=== PATIENT | female | born 1940 | race Caucasian/White ===

== ENCOUNTER → 2020-10-18 | Outpatient (CLI) | payer MEDICARE ==
[2020-10-18 18:32] LABS: Appearance, Urine Hazy (Clear); Bilirubin, Urine Neg (Neg); Blood, Urine 2+ (Neg); Color, Urine Yellow (P-Yellow); Glucose Qualitative, Urine Neg (Neg); Ketones, Urine Neg (Neg); Leukocyte Esterase, Urine 3+ (Neg); Nitrite, Urine Pos (Neg); Protein, Urine 1+ (Neg); Urobilinogen, Urine NORM (Normal); pH, Urine 6.5 (5.0-8.0)
[2020-10-18 19:04] LABS: Squamous Epithelial Cells Mod /hpf (Few)
[2020-10-18 19:05] LABS: Bacteria Many /hpf; Mucus Light (0-Heavy); Transitional Epithelial Cells Few /hpf (0-Rare); White Blood Cells, Urine 25-50 /hpf (0-5)
== END | disposition home or self-care (01) ==
LOC: PLD 17:03 → LAB SHORT 17:03
PROVIDERS: Internal Medicine
DX: N39.0 Urinary tract infection, site not specified (principal)
CPT/HCPCS: 81001; 87077; 87086; 87186

== ENCOUNTER → 2021-02-06 | Outpatient (CLI) | payer MEDICARE ==
[2021-02-06 12:06] LABS: Protein, Urine Quantitative 9.5 mg/dL (0.0-11.9)
== END | disposition home or self-care (01) ==
LOC: LAB SHORT 03:00 → LAB 03:00
PROVIDERS: Internal Medicine
DX: N04.9 Nephrotic syndrome with unspecified morphologic changes (principal)
CPT/HCPCS: 81050; 84156

== ENCOUNTER 2021-12-05 01:20 | Inpatient (IN) | payer MEDICARE ==
[~2021-12-05] VITALS: Ht 157.5 cm; Wt 70.9 kg
[2021-12-05 01:55] LABS: BASOPHILS ABSOLUTE AUTO 0.04 K/mm3 (0.00-0.23); BASOPHILS PERCENT AUTO 0 % (0-2); EOSINOPHILS ABSOLUTE AUTO 0.07 K/mm3 (0.00-0.68); EOSINOPHILS PERCENT AUTO 0 % (0-6); Hemoglobin 7.4 g/dL (11.5-16.0); IMMATURE GRAN ABSOLUTE AUTO 0.85 K/mm3 (0.00-0.10); IMMATURE GRAN PERCENT AUTO 4 % (0-1); LYMPHOCYTES ABSOLUTE AUTO 3.81 K/mm3 (0.84-5.20); LYMPHOCYTES PERCENT AUTO 16 % (21-46); MONOCYTES ABSOLUTE AUTO 0.98 K/mm3 (0.16-1.47); MONOCYTES PERCENT AUTO 4 % (4-13); Mean Corpuscular HGB 25.4 pg (26.0-34.0); Mean Corpuscular HGB Conc 29.6 g/dL (31.5-36.5); Mean Corpuscular Volume 86 fL (80-100); Mean Platelet Volume 9.6 fL (9.1-12.4); NEUTROPHILS ABSOLUTE AUTO 17.89 K/mm3 (1.96-9.15); NEUTROPHILS PERCENT AUTO 76 % (41-73); Platelet Count 886 K/mm3 (150-400); RDW Coefficient Variation 16.4 % (11.7-14.2); RDW Standard Deviation 51.8 fL (35.1-46.3); Red Blood Cell Count 2.91 M/mm3 (3.80-5.20); White Blood Cell Count 23.64 K/mm3 (4.00-11.30)
[2021-12-05 02:17] LABS: Base Excess Venous -20.8 mmol/L; Bicarbonate Venous 9.6 mmol/L (24.0-30.0); PCO2 Venous 25.4 mmHg (38-42); PO2 Venous 136 mmHg (38-42)
[2021-12-05 02:22] LABS: pH Blood Venous 7.13 (7.34-7.37)
[2021-12-05 02:38] LABS: Source, Urine Foley catheter
[2021-12-05 02:55] LABS: Thyroid Stimulating Hormone 4.57 uIU/mL (0.360-4.800)
[2021-12-05 03:03] LABS: Appearance, Urine Cloudy (Clear); Bilirubin, Urine Neg (Neg); Blood, Urine 2+ (Neg); Color, Urine Yellow (P-Yellow); Glucose Qualitative, Urine Neg (Neg); Ketones, Urine Neg (Neg); Leukocyte Esterase, Urine 3+ (Neg); Nitrite, Urine Pos (Neg); Protein, Urine 2+ (Neg); Specific Gravity, Urine 1.025 (1.003-1.022); Urobilinogen, Urine NORM (Normal)
[2021-12-05 03:18] LABS: International Normalized Ratio 1.4; Prothrombin Time Results 14.4 Sec (9.7-11.5)
[2021-12-05 03:24] LABS: Bacteria Many /hpf; Red Blood Cells, Urine 0-2 /hpf (0-2); Squamous Epithelial Cells Mod /hpf (Few); White Blood Cells, Urine TNTC /hpf (0-5)
[2021-12-05 03:26] LABS: U Amphetamine Screen Not Detected; U Barbituate Screen Not Detected; U Benzodiazapine Screen Not Detected; U Buprenorphine Screen Not Detected; U Cannabinoids Screen Not Detected; U Cocaine Screen Not Detected; U Methadone Screen DETECTED; U Methamphetamine Screen Not Detected; U Opiates Screen Not Detected; U Oxycodone Screen Not Detected; U Phencyclidine Screen Not Detected; U Propoxyphene Screen Not Detected
[2021-12-05 03:27] LABS: PCO2 Arterial 66.6 mmHg (35-45); PO2 Arterial 129 mmHg (80-100)
[2021-12-05 03:28] LABS: pH Blood Arterial 6.89 (7.35-7.45)
[2021-12-05 04:38] LABS: Albumin, Blood 1.4 g/dL (3.4-5.0); Albumin/Globulin Ratio 0.4 (0.8-1.8); Bilirubin, Total 0.5 mg/dL (0.1-1.0); Bun/Creatinine Ratio 27.2 (12.0-20.0); Calcium, Blood 8.9 mg/dL (8.5-10.1); Creatinine, Blood 1.03 mg/dL (0.40-1.00); Globulin, Blood 3.8 g/dL (2.2-4.0); Potassium, Blood 6.2 mmol/L (3.5-5.5); Total Protein, Blood 5.2 g/dL (6.4-8.2)
[2021-12-05 06:25] LABS: Influenza A, PCR NEGATIVE (NEGATIVE); Influenza B, PCR NEGATIVE (NEGATIVE); Resp Syncytial Virus, PCR NEGATIVE (NEGATIVE); SARS-Cov-2 (COVID-19) PCR, MMC NEGATIVE (NEGATIVE)
--- NOTE | 2021-12-05 07:19 | NUR ---
PT ARRIVED TO UNIT AT 0640. AT BEDSIDE. NO PRESSORS RUNNING AT THIS TIME. BP SOFT, MAP ABOVE 65. PT PLACED ON UNIT VENT BY RT. CARE RELINQUISHED TO ANDRY VICENTE.
[2021-12-05 07:39] LABS: PCO2 Arterial 43.4 mmHg (35-45); PO2 Arterial 119 mmHg (80-100)
[2021-12-05 08:06] LABS: BASOPHILS ABSOLUTE AUTO 0.15 K/mm3 (0.00-0.23); BASOPHILS PERCENT AUTO 0 % (0-2); Hemoglobin 8.6 g/dL (11.5-16.0); LYMPHOCYTES ABSOLUTE AUTO 2.58 K/mm3 (0.84-5.20); LYMPHOCYTES PERCENT AUTO 7 % (21-46); MONOCYTES ABSOLUTE AUTO 1.29 K/mm3 (0.16-1.47); MONOCYTES PERCENT AUTO 3 % (4-13); Mean Corpuscular HGB Conc 31.9 g/dL (31.5-36.5); Mean Corpuscular Volume 85 fL (80-100); Mean Platelet Volume 9.5 fL (9.1-12.4); Platelet Count 493 K/mm3 (150-400); RDW Coefficient Variation 14.8 % (11.7-14.2); RDW Standard Deviation 45.8 fL (35.1-46.3); Red Blood Cell Count 3.18 M/mm3 (3.80-5.20); White Blood Cell Count 39.46 K/mm3 (4.00-11.30)
[2021-12-05 08:11] LABS: EOSINOPHILS ABSOLUTE AUTO 0.01 K/mm3 (0.00-0.68); EOSINOPHILS PERCENT AUTO 0 % (0-6); IMMATURE GRAN ABSOLUTE AUTO 1.76 K/mm3 (0.00-0.10); IMMATURE GRAN PERCENT AUTO 5 % (0-1); NEUTROPHILS ABSOLUTE AUTO 33.67 K/mm3 (1.96-9.15); NEUTROPHILS PERCENT AUTO 85 % (41-73)
[2021-12-05] MEDS ORDERED: METH5 PO (08:15)
[2021-12-05 11:09] LABS: Bun/Creatinine Ratio 25.4 (12.0-20.0); Calcium, Blood 8.5 mg/dL (8.5-10.1); Creatinine, Blood 1.26 mg/dL (0.40-1.00)
[2021-12-05 12:29] LABS: Hematocrit 27.8 % (33.0-51.0); Hemoglobin 9.3 g/dL (11.5-16.0)
--- NOTE | 2021-12-05 12:31 | NUR ---
REASSESSMENT PT REMAINS INTUBATED AND SEDATION WAS STARTED THIS MORNING PT STARTED BREATHING AT A RATE IN THE UPPER 30S AND APPEARING MORE AGITATED. BEFORE SEDATION STARTED PT WOULD OPEN HER EYES TO VOICE AND SHAKE OR NOD HER HEAD TO QUESTIONS. LUNGS WERE COARSE BEFORE SUCTIONING AND CLEAR AFTER GETTING A LARGE AMT OF THICK WHITE/CREAM SECRETIONS OUT OF ETT. PT REMAINS SINUS TACH IN THE 1 TEENS. RECEIVING LEVOPHED AND VASOPRESSIN FOR BP SUPPORT. ART LINE PLACED THIS MORNING BY DR. BOLANOS. LINE IS QUITE POSITIONAL AND DAMPENS VERY EASILY. OG WITH DARK GREEN, BILIOUS APPEARING OUTPUT. PT HAS BEEN HAVING LOOSE STOOLS THAT HAVE BECOME MORE LIQUID. THE AMOUNT INCREASED THROUGHOUT THE MORNING SO RECTAL TUBE IN PLACE NOW TO PROTECT PT'S SKIN IT WAS ALREADY PINK AND FRAGILE APPEARING WHEN PT ARRIVED. WAN WITH DARK YELLOW, CLOUDY URINE. PT'S SON AND DAUGHTERS HAVE BEEN AT THE BEDSIDE MOST OF THE MORNING. THEY WERE UPDATED BY DR. BOLANOS AND THEY HAVE BEEN UPDATED THROUGHOUT THE SHIFT BY NURSING STAFF.
[2021-12-05 14:33] LABS: Vancomycin, Random 16.1 ug/mL
--- NOTE | 2021-12-05 15:01 | NUR ---
DR. BOLAONS CALLED TO UPDATE ON ONLY 8ML OF URINE OUTPUT OVER THE LAST 2 HOURS, MAP AT 60MMHG WITH LEVOPHED AT 20MCG/MIN AND VASOPRESSIN INFUSING, WELL FEVER. RECEIVED ORDER FOR 1L LR. CONTINUE TO MONITOR.
[2021-12-05 15:59] LABS: Hematocrit 22.7 % (33.0-51.0); Hemoglobin 7.8 g/dL (11.5-16.0)
--- NOTE | 2021-12-05 16:55 | NUR ---
SHIFT SUMMARY PT REMAINED INTUBATED AND SEDATED THIS SHIFT. SHE IS STILL REQUIRING PRESSORS, BUT THEY HAVE BEEN TITRATED DOWN SINCE BOLUS WAS GIVEN THIS AFTERNOON. LUNGS ARE COARSE AT TIMES, BUT CLEAR ONCE SUCTIONED. MODERATE AMT OF SPUTUM THIS AFTERNOON, SAMPLE SENT PER DR. BOLANOS. SR WITH RATE IN THE 90S. RECTAL TUBE WITH SMALL AMT OF OUTPUT. SM AMT OF LEAKING AROUND TUBE WITH EACH TURN WELL. WAN WITH SCANT URINE OUTPUT THIS AFTERNOON, MD AWARE. SKIN CONDITION UNCHANGED. FAMILY HAS BEEN AT THE BEDSIDE MOST OF THE SHIFT AND WERE UPDATED THROUGHOUT.
[2021-12-05 20:07] LABS: Bun/Creatinine Ratio 21.8 (12.0-20.0); Calcium, Blood 7.9 mg/dL (8.5-10.1); Creatinine, Blood 1.65 mg/dL (0.40-1.00); Magnesium, Blood 1.6 mg/dL (1.6-2.4); Phosphorus, Blood 5.2 mg/dL (2.5-4.9); Potassium, Blood 4.8 mmol/L (3.5-5.5)
--- NOTE | 2021-12-05 20:48 | NUR ---
ASSUMED CARE AT 1900 PATIENT IS INTUBATED AND SEDATED ON PROPOFOL. LOCALIZES TO PAIN, MOVEMENT IN ALL EXTREMETIES, NO EYE OPENING, COUGH AND GAG REFLEX PRESENT. 02 SATS 100% ON VENT AC VC+ 18/370/5/35% RR 21. THICK CM SPUTUM SUCTIONED FROM ETT. OG TO LIS WITH YELLOW BILE OUTPUT MODERATE AMOUNT. HR SR @80s, BP STABLE ON LEVO AND VASO, ART LINE IN PLACE. WAN DRAINING SMALL AMOUNT OF ROSANNA URINE. RECTAL TUBE IN PLACE WITH SMALL AMOUNT OF LIGHT BROWN LIQUID OUTPUT. PATIENT REPOSITIONED AND ORAL CARE DONE. SEE SHIFT ASSESSMENT FOR MORE DETAIL.
[2021-12-06 03:32] LABS: PCO2 Arterial 32.8 mmHg (35-45); PO2 Arterial 86.7 mmHg (80-100); pH Blood Arterial 7.47 (7.35-7.45)
[2021-12-06 03:47] LABS: Hematocrit 20.9 % (33.0-51.0); Hemoglobin 7.2 g/dL (11.5-16.0); Mean Corpuscular HGB 27.5 pg (26.0-34.0); Mean Corpuscular HGB Conc 34.4 g/dL (31.5-36.5); Mean Platelet Volume 10.2 fL (9.1-12.4); Platelet Count 471 K/mm3 (150-400); RDW Coefficient Variation 14.8 % (11.7-14.2); RDW Standard Deviation 43.2 fL (35.1-46.3); Red Blood Cell Count 2.62 M/mm3 (3.80-5.20); White Blood Cell Count 31.46 K/mm3 (4.00-11.30)
[2021-12-06 03:53] LABS: Mean Corpuscular Volume 80 fL (80-100)
[2021-12-06 04:14] LABS: Alanine Aminotransfer (ALT/SGP 173 U/L (12-78); Albumin, Blood 1.3 g/dL (3.4-5.0); Albumin/Globulin Ratio 0.4 (0.8-1.8); Alk Phos 149 U/L (50-136); Anion Gap 8 mmol/L (6-16); Aspartate Aminotrans (AST/SGOT 296 U/L (12-37); Bilirubin, Total 0.5 mg/dL (0.1-1.0); Blood Urea Nitrogen 37 mg/dL (8-24); Bun/Creatinine Ratio 21.3 (12.0-20.0); CO2, Blood 24 mmol/L (21-32); Calcium, Blood 7.7 mg/dL (8.5-10.1); Chloride, Blood 104 mmol/L (98-108); Creatinine, Blood 1.74 mg/dL (0.40-1.00); Globulin, Blood 3.2 g/dL (2.2-4.0); Glomerular Filtration Rate 28 (60-); Glucose, Blood 208 mg/dL (70-99); Magnesium, Blood 1.5 mg/dL (1.6-2.4); Phosphorus, Blood 5.3 mg/dL (2.5-4.9); Potassium, Blood 4.6 mmol/L (3.5-5.5); Sodium, Blood 136 mmol/L (136-145); Total Protein, Blood 4.5 g/dL (6.4-8.2); Vancomycin, Random 12.1 ug/mL
[2021-12-06 04:28] LABS: BAND PERCENT MAN 19 % (0-8); BASOPHILS PERCENT MAN 0 % (0-2); EOSINOPHILS PERCENT MAN 0 % (0-6); LYMPHOCYTES ABSOLUTE MAN 5.66 K/mm3 (0.84-5.20); LYMPHOCYTES PERCENT MAN 18 % (21-46); MONOCYTES ABSOLUTE MAN 0.94 K/mm3 (0.16-1.47); MONOCYTES PERCENT MAN 3 % (4-13); NEUTROPHILS ABSOLUTE MAN 24.85 K/mm3 (1.96-9.15); SEG NEUTROPHILS PERCENT MAN 60 % (41-73); TOTAL CELLS COUNTED 100
--- NOTE | 2021-12-06 06:45 | NUR ---
SHIFT SUMMARY PATIENT REMAINS INTUBATED AND SEDATED ON PROPOFOL. PUPILS REACTIVE, RESPONDS TO VERBAL STIMULI, LOCALIZES AND MOVES ALL EXTREMTIES TO PAIN. 02 SATS 99% ON VENT AC VC + 18/370/5/30%, RR 20. LS CLEAR. SUCTIONING MODERATE AMOUNT OF THICH CM SPUTUM FROM ETT. HR SR @70s. BP STABLE ON LEVO AND VASO, ABLE TO TITRATE LEVO DOWN, ART LINE PATENT. TEMP WAN PATENT AND DRAINING ROSANNA URINE TO GRAVITY 100 MLS OUTPUT THIS SHIFT. RECTAL TUBE DRAINING LIQUID LIGHT BROWN STOOL. OG TO LIS, YELLOW BILE OUTPUT. MEDICATED FOR PAIN PER EMAR. BEDBATH DONE THIS SHIFT. PATIENT TURNED Q2 HOURS. MAG LOW THIS AM, CALLED HOSPITALIST, REPLACING NOW.
--- NOTE | 2021-12-06 10:00 | NUR ---
SBT PROPOFOL PLACED ON STANDBY AT 0900. PT LETHARGIC, BUT SQUEEZES HANDS UPON COMMAND. PT PLACED ON PRESSURE SUPPORT 7/5, FIO2 30%. PT TOLERATING WELL.
--- NOTE | 2021-12-06 11:25 | NUR ---
EXTUBATION RT AT BEDSIDE. RT CONFIRMED WITH DR BOLANOS THAT PT IS OK FOR EXTUBATION. PT EXTUBATED AT 1120. PT PLACED ON 2L O2 NC. PT IS DROWSEY, BUT NODS YES/NO TO QUESTIONS APPROPRIATELY. PT SON AT BEDSIDE. WILL CONTINUE TO MONITOR.
[2021-12-06 16:16] LABS: Hemoglobin 6.9 g/dL (11.5-16.0)
--- NOTE | 2021-12-06 17:39 | NUR ---
SHIFT SUMMARY PT DID WELL THIS SHIFT. PT ABLE TO BE EXTUBATED THIS MORNING. PT HAS REMAINED ON 2L O2 NC. PT ANSWERS SOME QUESTIONS APPROPRIATELY, BUT REMAINS DROWSEY. PT HAS DENIED PAIN THIS SHIFT. VITAL SIGNS STABLE, BP FLUCTUATES AT TIMES, LEVOPHED ABLE TO BE TITRATED OFF THIS SHIFT. CENTRAL LINE AND ART LINE TO RIGHT GROIN SITE REMAIN C/D/I. WAN IN PLACE WITH MINIMAL AMOUNT OF DARK YELLOW OUTPUT NOTED. RECTAL TUBE REMAINS IN PLACE WITH MINIMAL AMOUNT OF LIQUID DARK BROWN OUTPUT NOTED. PT FAMILY HAS REMAINED AT BEDSIDE THROUGHOUT THE SHIFT. LR INFUSING AT 150 ML/HR. WILL CONTINUE TO MONITOR AND REPORT OFF TO ONCOMING RN.
--- NOTE | 2021-12-06 20:33 | NUR ---
ASSUMED CARE AT 1900 PATIENT IS LETHARGIC, RESPONDS TO VERBAL STIMULI, ORIENTED X4, FOLLOWING COMMANDS. COMPLAINS OF GENERALIZED PAIN, MEDICATED PER EMAR AND REPOSITIONED. 02 SATS 99% ON 2L VIA NC, LS CLEAR TO DIM IN THE BASES. MOISTURIZER AND ORAL CARE PROVIDED. HR ST @105, BP STABLE, ART LINE IN PLACE AND PATENT. WAN PATENT AND DRAINING MINIMAL ROSANNA CLOUDY URINE. RECTAL TUBE DRAINING BROWN LIQUID STOOL. 1 UNIT OR PRBCs STILL INF. CALL LIGHT IN REACH. SEE SHIFT ASSESSMENT FOR MORE DETAIL.
[2021-12-07 04:23] LABS: Hematocrit 20.4 % (33.0-51.0); Hemoglobin 7.1 g/dL (11.5-16.0); Mean Corpuscular HGB 27.6 pg (26.0-34.0); Mean Corpuscular HGB Conc 34.8 g/dL (31.5-36.5); Mean Corpuscular Volume 79 fL (80-100); Platelet Count 433 K/mm3 (150-400); RDW Coefficient Variation 15.3 % (11.7-14.2); RDW Standard Deviation 44.6 fL (35.1-46.3); Red Blood Cell Count 2.57 M/mm3 (3.80-5.20); White Blood Cell Count 20.95 K/mm3 (4.00-11.30)
[2021-12-07 04:52] LABS: Alanine Aminotransfer (ALT/SGP 155 U/L (12-78); Albumin, Blood 1.3 g/dL (3.4-5.0); Albumin/Globulin Ratio 0.4 (0.8-1.8); Alk Phos 139 U/L (50-136); Anion Gap 10 mmol/L (6-16); Aspartate Aminotrans (AST/SGOT 240 U/L (12-37); Bilirubin, Total 0.7 mg/dL (0.1-1.0); Blood Urea Nitrogen 43 mg/dL (8-24); CO2, Blood 24 mmol/L (21-32); Calcium, Blood 8.1 mg/dL (8.5-10.1); Chloride, Blood 104 mmol/L (98-108); Creatinine, Blood 2.15 mg/dL (0.40-1.00); Globulin, Blood 3.4 g/dL (2.2-4.0); Glomerular Filtration Rate 22 (60-); Glucose, Blood 119 mg/dL (70-99); Phosphorus, Blood 5.2 mg/dL (2.5-4.9); Potassium, Blood 4.3 mmol/L (3.5-5.5); Sodium, Blood 138 mmol/L (136-145); Total Protein, Blood 4.7 g/dL (6.4-8.2); Vancomycin, Random 20.8 ug/mL
[2021-12-07 05:52] LABS: BAND PERCENT MAN 12 % (0-8); BASOPHILS PERCENT MAN 0 % (0-2); EOSINOPHILS PERCENT MAN 0 % (0-6); LYMPHOCYTES ABSOLUTE MAN 2.51 K/mm3 (0.84-5.20); LYMPHOCYTES PERCENT MAN 12 % (21-46); MONOCYTES ABSOLUTE MAN 0.62 K/mm3 (0.16-1.47); MONOCYTES PERCENT MAN 3 % (4-13); MYELOCYTE PERCENT MAN 1 % (0-0); NEUTROPHILS ABSOLUTE MAN 17.59 K/mm3 (1.96-9.15); SEG NEUTROPHILS PERCENT MAN 72 % (41-73); TOTAL CELLS COUNTED 100
--- NOTE | 2021-12-07 06:32 | NUR ---
SHIFT SUMMARY PATIENT IS LETHARGIC BUT RESPONDS TO VERBAL STIMULI AND ORIENTED X4. 02 SATS 99% ON RA, LS CLEAR. COARSE SOUNDING COUGH WITH NO PRODUCTION. HR SR 80s, BP STABLE, ART LINE REMAINS PATENT. WAN DRAINING YELLOW URINE WITH SEDIMENT, OUTPUT IMPROVING, 500 MLS THIS SHIFT. RECTAL TUBE REMOVED DUE TO MINIMAL OUTPUT AND LEAKING. PATIENT MEDICATED PER EMAR FOR GENERALIZED PAIN. REPOSITIONED Q2 HOURS, LINEN CHANGE AND PARTIAL BATH DONE. CALL LIGHT IN REACH.
--- NOTE | 2021-12-07 17:09 | NUR ---
SHIFT SUMMARY: PT HAD NO ACUTE CHANGES THIS SHIFT. PT DROWSY THROUGHOUT THE DAY BUT ABLE TO RESPOND TO VERBAL STIMULI AND FOLLOW COMMANDS. SATING 95% ON RA. VSS. ART AND CENTRAL LINE WERE REMOVED THIS SHIFT, SITE REMAINS STABLE. PT HAD ONE INC BOWEL MOVEMENT OF BROWN LIQUID STOOL. WAN CATHETER REMAINS INTACT WITH 600 ML OF YELLOW URINE OUTPUT. FAMILY REMAINED AT BEDSIDE THROUGHOUT THE DAY. WILL CONTINUE TO MONITOR AND REPORT TO ONCOMING RN.
--- NOTE | 2021-12-08 00:16 | NUR ---
ASSUMED CARE AT 1900 PATIENT IS ALERT AND ORIENTED X4. 02 SATS 95% ON RA. LS CLEAR. PATIENT HAS COARSE SOUNDING COUGH WITH SMALL AMOUNT OF CM SPUTUM PRODUCTION. ORAL CARE DONE. HR SR @80s. BP STABLE. DENIES CP/PRESSURE. WAN DRAINING YELLOW/SEDIMENT URINE TO GRAVITY. PATIENT HAVING LARGE LIQUID BROWN STOOLS, REINSERTED RECTAL TUBE. PATIENT REPOSITIONED. CALL LIGHT IN REACH.
[2021-12-08 03:20] LABS: Hematocrit 22.8 % (33.0-51.0); Hemoglobin 7.5 g/dL (11.5-16.0); Mean Corpuscular HGB 26.9 pg (26.0-34.0); Mean Corpuscular HGB Conc 32.9 g/dL (31.5-36.5); Mean Corpuscular Volume 82 fL (80-100); Mean Platelet Volume 9.8 fL (9.1-12.4); Platelet Count 497 K/mm3 (150-400); RDW Coefficient Variation 15.4 % (11.7-14.2); RDW Standard Deviation 45.8 fL (35.1-46.3); Red Blood Cell Count 2.79 M/mm3 (3.80-5.20); White Blood Cell Count 23.42 K/mm3 (4.00-11.30)
[2021-12-08 03:36] LABS: Bun/Creatinine Ratio 21.2 (12.0-20.0); Calcium, Blood 8.5 mg/dL (8.5-10.1); Creatinine, Blood 2.26 mg/dL (0.40-1.00); Potassium, Blood 3.7 mmol/L (3.5-5.5)
[2021-12-08 03:44] LABS: BAND PERCENT MAN 5 % (0-8); BASOPHILS PERCENT MAN 0 % (0-2); EOSINOPHILS PERCENT MAN 0 % (0-6); LYMPHOCYTES ABSOLUTE MAN 2.34 K/mm3 (0.84-5.20); LYMPHOCYTES PERCENT MAN 10 % (21-46); MONOCYTES PERCENT MAN 3 % (4-13); NEUTROPHILS ABSOLUTE MAN 20.37 K/mm3 (1.96-9.15); SEG NEUTROPHILS PERCENT MAN 82 % (41-73); TOTAL CELLS COUNTED 100
--- NOTE | 2021-12-08 05:43 | NUR ---
SHIFT SUMMARY PATIENT IS ALERT AND ORIENTED X4, FORGETFULL AT TIMES. 02 SATS 95% ON RA. LS COARSE IN UPPER LOBES, PATIENT ABLE TO COUGH SOME THICK CM SPUTUM UP. TOLERATING SMALL AMOUNTS OF PO FLUIDS WITHOUT COUGHING. HR SR -ST AT 80s-110. BP STABLE. WAN DRAINING YELLOW SEDIMENT URINE TO GRAVITY. RECTAL TUBE IN PLACE DRAINING LIQUID BROWN STOOL. PATIENT ASSISTS WITH REPOSITIONING, REFUSES AT TIMES. CALL LIGHT IN REACH.
--- NOTE | 2021-12-08 07:21 | NUR ---
TOOK OVER CARE OF PT AT 0700, PT RESTING ON RA, NO DRIPS RUNNING.
--- NOTE | 2021-12-08 10:31 | NUR ---
Spiritual Care Visit ...at the request of her medical billing specialist. Pt. is resting. Son is present. Enage son and establish rapport. Facilitate a life review. Son displays evidence of trust. Pt. woke up as went to pray with her. Pt. asked this professional organizer to communicate with her medical billing specialist. Prayed with Pt. Pt. verbalized gratitude for the spitiual care visit. Communicated with Pts. Employment Service Specialist via text.
--- NOTE | 2021-12-08 18:05 | NUR ---
SUMMARY NEURO; PT A/O X3, INTERMITTENT FORGETFULNESS, FOLLOWS COMMAND AND FULL SENSATION IN ALL EXTREMETIES. GENERALIZED WEAKNESS. PT/OT ON BOARD. CARDIAC: NSR, DEPENDENT EDEMA IN EXTREMETIES, PULSES PALPABLE. LUNGS; DIMINISHED THROUGHOUT, INTERMITTENT COUGH. SKIN; DRY FLAKY SKIN, FRAGILE DMITRI AREA DUE TO FREQUENT STOOLS. FOAM PLACED ON COCCYX AND BARRIER FILM APPLIED. GI; FMS REPLACED. POOR RECTAL TONE, LIQUID STOOLS. TOLERATING REGULAR DIET. ; WAN ON PLACE, CLOUDY/SEDIMENT/ROSANNA URINE. LOW OUTPUT.
--- NOTE | 2021-12-08 23:50 | NUR ---
oriented to all questions except place. very pleasant. rectal tube in place with very small amount of liquid stool in tube at rectum, foul smell noted. no IV site with assessment. IV started see documentation. report given to Vivienne VICENTE and turned over care
--- NOTE | 2021-12-09 00:13 | NUR ---
ASSUMED CARE OF PT @0000 PT IS LAYING QUIETLY AND SOMNOLENT IN BED. WILL NOD IN ACKNOWLEDGMENT TO HER NAME BUT WILL NOT OPEN EYES. TEMP WAN DRAINING ROSANNA URINE WITH SEDIMENT PRESENT. TEMP 99.2, HR 88, RR 20, SPO2 95% ON RA. RECTAL TUBE IN PLACE NO STOLLS IN COLLECTION DEVICE. SEQ COMP DEV ON CALVES. PERIPH IV IN R AC SALINE LOCK. PT HAS PSORIASIS PATCHES OVER HER BODY.
--- NOTE | 2021-12-09 02:14 | NUR ---
PT PULLED OUT PERIPHERAL IV. REMOVED DRESSING AND APPLIED BANDAGE. REPOSITIONED TO LEFT SIDE. PT WAS INTERACTIVE WHILE BEING REPOSITIONED.
--- NOTE | 2021-12-09 05:51 | NUR ---
END OF SHIFT SUMMARY PT RESTED COMFORTABLY THROUGH THE NIGHT. WAS ABLE TO COMMUNICATE NEEDS BUT REPEATED SENTENCES. WAN IN PLACE. RECTAL TUBE IN PLACE. PERIPHERAL IV IN R HAND. NO INFUSIONS. ON RA. WILL CONTINUE TO MONITOR AND REPORT TO ONCOMING RN.
[2021-12-09 07:30] LABS: Hematocrit 24.1 % (33.0-51.0); Hemoglobin 7.8 g/dL (11.5-16.0)
--- NOTE | 2021-12-09 07:30 | NUR ---
TOOK OVER CARE OF PT AT 0700. PT ON RA, REQUESTING PAIN MEDICATION, REPOSITIONED AND THEN GAVE MED
[2021-12-09 07:45] LABS: Calcium, Blood 8.3 mg/dL (8.5-10.1); Creatinine, Blood 2.1 mg/dL (0.40-1.00); Potassium, Blood 3.1 mmol/L (3.5-5.5)
--- NOTE | 2021-12-09 17:18 | NUR ---
SUMMARY NEURO; INTERMITTENT CONFUSION, FOLLOWS COMMANDS ON ALL EXTREMETIES, KNOWS THE YEAR AND SELF CONSISTENTLY. LUNGS; DIMINISHED THROUGHOUT, LARGE AMOUNT OF DARK GREEN SPUTUM WHEN COUGHS. ON RA. SKIN: FRAGILE DMITRI ANAL AREA, SURE PREP AND ZINC CREAM APPLIED. GI; FMS IN PLACE. ; WAN REMOVED. CARDIAC; NSR
--- NOTE | 2021-12-09 19:19 | NUR ---
DAUGHTER SANDRA NOTIFIED OF PT TRANSFERRING TO RM 354, UNABLE TO REACH PT'S SON SARAH WHEN CALLED BUT SANDRA STATED SHE WOULD NORIFY HIM.
--- NOTE | 2021-12-10 04:54 | NUR ---
SHIFT SUMMARY PATIENT HAD VISUAL HALLUCINATIONS. AXOX 2-3 WITH CONFUSION. BEDREST. TELEMETRY NSR 86. RECTAL TUBE IN PLACE. ON ROOM AIR. VSS/AFEBRILE. DENIES PAIN, SOB, AND N/V. BLADDER SCAN 538. WAN DC'D IN ICU BEFORE TRANSFER TO MEDICAL AT SHIFT CHANGE. PULLED PIV. CALL LIGHT IN REACH. BED IN LOWEST POSITION. WILL CONTINUE TO MONITOR.
[2021-12-10 05:34] LABS: Albumin, Blood 1.6 g/dL (3.4-5.0); Anion Gap 6 mmol/L (6-16); Blood Urea Nitrogen 41 mg/dL (8-24); Bun/Creatinine Ratio 20.9 (12.0-20.0); CO2, Blood 28 mmol/L (21-32); Calcium, Blood 8.4 mg/dL (8.5-10.1); Chloride, Blood 112 mmol/L (98-108); Creatinine, Blood 1.96 mg/dL (0.40-1.00); Glomerular Filtration Rate 24 (60-); Glucose, Blood 127 mg/dL (70-99); Phosphorus, Blood 2.8 mg/dL (2.5-4.9); Potassium, Blood 3.5 mmol/L (3.5-5.5); Sodium, Blood 146 mmol/L (136-145)
--- NOTE | 2021-12-10 08:00 | NUR ---
PT DROWSY. ALERT TO SELF. DENIES PAIN. STATES WANTS TO SLEEP. H/R IRREG, NO MURMUR NOTED. PER TELE STRIP NSR AT 84. LUNGS CLEAR, RESP EASY, UNLABORED. ON R/A. BT X4 RECTAL TUBE IN PLACE. DRAINING LOOSE BROWN MATERIAL. VOIDS INCONT. ATTENDS IN PLACE, CDI AT THIS TIME. BED IN LOW POSITIOIN, CALL LITE IN REACH. BED ALARM ON FOR SAFETY
--- NOTE | 2021-12-10 09:30 | NUR ---
PT SLEEPY. A/O X2-3. KNOWS SELF AND FAMILY. DENIES PAIN. ON TELE. PER TELE SINUS RHYTHM IN 80'S. NO MURMUR NOTED. DIMINISHED LUNG SOUNDS BILATERALLY. BREATHING IS EASY AND UNLABORED. ON ROOM AIR. RECTAL TUBE IN PLACE DRAINING TO GRAVITY. PT HAS NOT HAD ANY URINE PRODUCTION. SKIN IS DRY AND SCALING. MEPLEX PLACED ON COCCYX C/D/I. PT DOES NOT WANT TO GET OUT OF BED. SHE STATES SHE IS TIRED AND WANTS TO SLEEP UNTIL 4-5PM. DOES NOT WANT TO EAT NOR WORK WITH THERAPY. TALKED WITH PT AND EXPLAINED IMPORTANCE OF MOVING. PT DECLINES TO DO ANYTHING AT THIS TIME. DAUGHTER IS PRESENT AT BEDSIDE. BED IN LOW POSITION, CALL LIGHT IN REACH, CALLS APPROPRIATLY.
--- NOTE | 2021-12-10 12:39 | NUR ---
SPOKE TO DR REN RE PT AND RE RECTAL TUBE. OKAY TO REMOVE. REMOVED WATER FROM TUBE, REMOVED TUBE, CLEANED PT AND APPLIED BARRIER CREAM NECESSARY. PT AGREES IS MORE COMFORTABLE.
--- NOTE | 2021-12-10 16:22 | NUR ---
CALLED DR REN. DISCUSSED PT NOT URINATED THIS SHIFT. BLADDER SCANNED. JUST OVER 400. PT NOT IN DISTRESS. ORDERS TO SCAN NEEDED. STRAIGHT CATH >600 CC.
--- NOTE | 2021-12-10 17:11 | NUR ---
PT PLEASANT AND COOPERATIVE WITH CARE. A/O X2-3. DENIES PAIN. PT IS ON TELE. SINUS RHYTHM IN 90'S. NO MUMUR NOTED. LUNG SOUNDS ARE CLEAR BILATERALLY. BREATHING IS EASY AND UNLABORED. ON ROOM AIR. PULLED RECTAL TUBE THIS MORNING. PT HAS HAD MULTIPLE LOOSE STOOLS THIS SHIFT. PT HAS NOT URINATED THIS SHIFT. CALLED DOCTOR WHO SAID NOT TO STRAIGHT CATH UNLESS SHE HAS OVER 600ML IN HER BLADDER. BLADDER SCANNER SHOWED OVER 425ML. TALKED TO PT TO SEE IF SHE WOULD BE WILLING TO SIT ON THE BEDSIDE COMMODE TO SEE IF SHE CAN URINATE. PT AGREED SHE MIGHT BE ABLE TO DO THAT. PT HAS MEPLEX IN PLACE OVER COCCYX TO PREVENT BREAKDWON. MEPLEX IS CLEAN, DRY AND INTACT. WAS NOT CHANGED TODAY. ESCORIATION ON LABIA, CREAM APPLIED. SKIN IS DRY AND SCALING. PT FAMILY HAS BEEN AT BEDSIDE MOST OF THE MORNING. BED IN LOW POSITION, CALL LIGHT IN REACH, CALLS APPROPRIALTY.
--- NOTE | 2021-12-10 17:31 | NUR ---
AGREE WITH STUDENT NOTES. PT HAS AGREED TO ATTEMPT BSC. WILL TRY SHORTLY
--- NOTE | 2021-12-10 18:21 | NUR ---
PT UP TO BEDSIDE COMMODE. USED A GAITBELT TO TRANSFER A BEDSIDE COMMODE. PT HAS AN EXTRA LARGE AND LOOSE BOWEL MOVEMENT. 200CC VOIDED IN URINE. PT STATES HER ABDOMEN HURTS, I EXPLAINED THIS IS TO BE EXPECTED. GOING TO SPEAK TO NIGHTSHIFT ABOUT A POSSIBLE PROBIOTIC AND IMMODIUM FOR PT. BED IN LOW POSITION, CALL LIGHT IN REACH, CALLS APPROPRIATLY.
--- NOTE | 2021-12-10 18:29 | NUR ---
PT AGREED TO USE BSC. DID HAVE TO DO MOST OF LIFTING MYSELF. SAS JUST A PICKUP AND PIVOT TRANSFER. PT HAD A VERY LARGE UNFORMED BM. ALSO HAD SOME URINE, ABOUT 200CC. PIVOTTED PT BACK TO BED. BED IN LOW POSITION, CALLLITE IN REACH, BED ALARM ON FOR SAFETY
--- NOTE | 2021-12-11 04:14 | NUR ---
SHIFT SUMMARY PATIENT HAD NO ACUTE CHANGES. AXOX 2 WITH CONFUSION AND AGITATION AT TIMES. BEDREST. CBG 132. PIV REMAINS INTACT. TELEMETRY NSR 94. HOME METHADONE 2.5 MG DOSE STARTED THIS SHIFT. REPORTED GENERAL PAIN AND OXYCODONE 5 MG GIVEN X ONE. VSS/AFEBRILE. DENIES SOB AND N/V. CALL LIGHT IN REACH. BED IN LOWEST POSITION. WILL CONTINUE TO MONITOR UNTIL DAY SHIFT NURSE ASSUMES CARE.
[2021-12-11 05:06] LABS: Hematocrit 26.1 % (33.0-51.0); Hemoglobin 8.2 g/dL (11.5-16.0); Mean Corpuscular HGB Conc 31.4 g/dL (31.5-36.5); Mean Corpuscular Volume 86 fL (80-100); Mean Platelet Volume 9.7 fL (9.1-12.4); Platelet Count 638 K/mm3 (150-400); RDW Coefficient Variation 16.2 % (11.7-14.2); RDW Standard Deviation 50.4 fL (35.1-46.3); Red Blood Cell Count 3.04 M/mm3 (3.80-5.20)
[2021-12-11 05:38] LABS: Bun/Creatinine Ratio 23.4 (12.0-20.0); Calcium, Blood 8.4 mg/dL (8.5-10.1); Creatinine, Blood 1.71 mg/dL (0.40-1.00); Potassium, Blood 3.1 mmol/L (3.5-5.5)
--- NOTE | 2021-12-11 17:06 | NUR ---
SHIFT SUMMARY PT AAOX2/3 TODAY. COOPERATIVE WITH CARE. NEW MEPILEX PLACED TO COCCYX AND ON HEELS. WORKED WITH THERAPY TODAY, ABLE TO STAND AT THE SIDE OF THE BED, REPORTS FEELING VERY TIRED AFTER ALL THE WORK. TOLERATING PO WELL, MINIMAL APPETITE SHE "WANTS A GOOD OL' BURGER". REMAINS ON ROOM AIR. PLAN IS TO CONTINUE WORKING WITH THERAPY.
--- NOTE | 2021-12-12 05:01 | NUR ---
SHIFT SUMMARY 81 YR F ADMITTED ON 12/05/21 FOR GI BLEED THAT HAS BEEN RESOLVED. CURRENTLY BEING TX FOR UTI. FULL CODE. PT HAS SLEPT FOR THE MAJORITY OF THIS SHIFT SO THIS NURSE HAD LITTLE CONTACT W/ HER. SHE HAD TROUBLE SWALLOWING A LARGER PILL (PROBIOTIC) BUT DID FINE W/ A SMALL ONE. SHE WAS PLEASANT AND COOPERATIVE WELL A BIT GROGGY WHEN AWAKENED FOR MEDS OR TO CHANGE HER. SHE ASKED TO HAVE HER FACE WASHED AND VERY MUCH ENJOYED A COOL WASHCLOTH.
[2021-12-12 05:17] LABS: Bun/Creatinine Ratio 22.8 (12.0-20.0); Calcium, Blood 8.6 mg/dL (8.5-10.1); Creatinine, Blood 1.67 mg/dL (0.40-1.00); Potassium, Blood 3.1 mmol/L (3.5-5.5)
--- NOTE | 2021-12-12 18:21 | NUR ---
SHIFT SUMMARY A/O 2-3, FORGETFUL. PT C/O HOT FLASHES AND NAUSEA, MEDICATED PER EMAR. BEDREST AT THIS TIME D/T INCREASED WEAKNESS. PT RECOMMENDING USE OF LIFT FOR TRANSFERS TO CHAIR. LIQUID STOOLS NOTED, GI PANEL ORDERED TO R/O C.DIFF. CONTACT PRECAUTIONS IN PLACE. VSS, NO ACUTE CHANGES AT THIS TIME. BED IN LOWEST POSITION WITH CALL LIGHT IN REACH. WILL CONTINUE TO MONITOR AND REPORT TO ONCOMING RN.
--- NOTE | 2021-12-12 22:59 | NUR ---
EASILY ANXIOUS. REQUESTED MUCH ASSISTANCE WITH PO FLUIDS. REASSURANCE GIVEN. CALL LIGHT IN REACH. ISOLATION PRECAUTIONS MAINTAINED. NO BM OF THIS WRITING
--- NOTE | 2021-12-13 03:14 | NUR ---
DYLONKay SHIFT SUMMARY HAS BEEN RESTING QUIETLY WITH OCCASIONAL INTERRUPTIONS FOR MEDS AND ASSISTANCE WITH PO FLUIDS. NO BM OF THIS WRITING, EVEN THOUGH PT ON PRECAUTIONS FOR RULE OUT C-DIFF. HOB ELEVATED. NO NOTED S/S HEMOPTYSIS OR BLOODY STOOLS EITHER. CALL LIGHT IN REACH.
[2021-12-13 05:33] LABS: Bun/Creatinine Ratio 25.3 (12.0-20.0); Calcium, Blood 8.4 mg/dL (8.5-10.1); Creatinine, Blood 1.5 mg/dL (0.40-1.00); Potassium, Blood 3.3 mmol/L (3.5-5.5)
--- NOTE | 2021-12-13 10:52 | NUR ---
Case Conference Note Spoke with Denise Hudson and discussed case. Dr Fontana recommending hospice for Liver Cirrhosis. Dr Fontana has spoken with son and son is agreeable. Attempted to see Pt. Pt currently receiving personal care and working with PT. Spoke with son Hernandez out in the [place]. Confirmed Pt's wishes for hospice. Educated on hospice philosophy with V/U made by son. He reports being in agreement with hospice. Offered therapeutic listening and answered questions. Hernandez expresses appreciation and report no other concerns at this time. Palliative Care will remain available.
--- NOTE | 2021-12-13 18:23 | NUR ---
SUMMARY- PT ALRET AND ORIENTED X3, FLAT AND INTROVERTED. SLEEPY BUT EASILY AROUSABLE. MIN PO INTAKE, SIPS OF CLEARS AND A FEW BITES WITH MEALS. MOSTLY DRINKS SUPPLEMENTS AND SHERBIT. PT HAS CHRONIC PAIN IN BACK AND HAS COMPLAINED OF R HIP PAIN. SON STATES SHE HAS HAD MORE PAIN SINCE THE FALL A FEW WEEKS BACK AND THIS HAS ALSO CAUSED HER TO BE LESS ACTIVE, MORE DEPRESSED AND SLEEPY AND MORE PAINFUL. DIETARY CHANGED TO PUREE DIET IN HOPES IT WILL HELP PT TOLERATE FOOD MORE. PT'S TONGUE DRY AND SORE FROM POOR INTAKE. FREQ ORAL CARE AND MOUTH MOISTERIZER. DMITRI RED WITH LG AOMOUTS OF SKIN, CLEASED A APPLEID SKIN BARRIER. PT INCONT BOWEL AND BLADDER. UNABLE TO OBTAIN STOOL SPEC BECAUSE IT IS CM WATERY AND SOAKE INTO ATTENDS. SAMPLE SENT WAS NOT ENOUGH. PAIN CONTROLLED WITH ROUTINE METHADONE AND OXYCODONE 5MG X1 TODAY. SON AT BEDSIDE MOST OF THE DAY AND IS INVOLVED IN PT'S CARE. PLAN FOR SNF VS HOME WITH HH.
[2021-12-13 22:06] LABS: Adenovirus F 40/41 Not Detected (NOT DETECT); Astrovirus Not Detected (NOT DETECT); Campylobacter Sp Not Detected (NOT DETECT); Cryptosporidium Not Detected (NOT DETECT); Cyclospora Cayetanensis Not Detected (NOT DETECT); E. Coli O157 Not Detected (NOT DETECT); Entamoeba Histolytica Not Detected (NOT DETECT); Enteroaggregative E. coli-EAEC Not Detected (NOT DETECT); Enteropathogenic E. coli-EPEC Not Detected (NOT DETECT); Enterotoxigenic E. coli-ETEC Not Detected (NOT DETECT); Giardia Lamblia Not Detected (NOT DETECT); Norovirus GI/GII Not Detected (NOT DETECT); Plesiomonas Shigelloides Not Detected (NOT DETECT); Rotavirus A Not Detected (NOT DETECT); Salmonella Sp Not Detected (NOT DETECT); Sapovirus Not Detected (NOT DETECT); Shiga Toxin-prod E. coli-STEC Not Detected (NOT DETECT); Shigella/Enteroin E. coli-EIEC Not Detected (NOT DETECT); Vibrio Cholerae Not Detected (NOT DETECT); Vibrio Sp Not Detected (NOT DETECT); Yersinia Enterocolitica Not Detected (NOT DETECT)
--- NOTE | 2021-12-14 06:07 | NUR ---
SHIFT SUMMARY PATIENT ALERT AND ORIENTED X3. REQUIRED BEING STRAIGHT CATH DUE TO NOT VOIDING OVERNIGHT. CALL LIGHT WITHIN REACH. REPORT GIVEN TO ONCOMING RN.
[2021-12-14 09:41] LABS: Bun/Creatinine Ratio 24.6 (12.0-20.0); Creatinine, Blood 1.38 mg/dL (0.40-1.00); Potassium, Blood 3.1 mmol/L (3.5-5.5)
--- NOTE | 2021-12-14 12:31 | NUR ---
Spiritual Care visit. Pt. is resting, but son is present and welcomes my visit. The son had many questions regarding the care and progress of the Pt. The son verbalized confusion in the Pts. diagnosis. Listened theraputically and answered some questions regarding the role of Palliative Care in the pts. and families life. The son verbalized that his mother had been making progress and that the Dr. felt she might be able to go home in a day or so. The son is confused because the Pt. is very weak. The son displayed evidence of confusion over the difference between Palliative Care and hospice. The son verbalized gratitude for the spiritual care visit, and answering some of his questions. A verbal report was given to Ranulfo in Palliative Care.
--- NOTE | 2021-12-14 13:05 | NUR ---
Supportive visit this afternoon. Pt resting in bed with her eyes closed. Son Hernandez at bedside. Pt remains a sleep throughout the conversation. Reviewed plan of care with son Hernandez. Answered questions and offered therapeutic listening. Discussed Pt's wishes for code status. Gentle education on life sustaining treatments including risk factors and implications of CPR. Hernandez reports plan to discuss further with his sisters today. Deferred D/C questions for Caremanager to discuss. Hernandez expresses appreciation and reports no other concerns. Palliative Care will remain available.
--- NOTE | 2021-12-14 19:16 | NUR ---
1630- PLACED WAN WITH FILM AND VIDEO GRAPHICS DESIGNER, SENT UA, STARTED 24 HR UUN, PLACED ON ICE
--- NOTE | 2021-12-14 19:26 | NUR ---
1200- NOTIFIED DR TIDWELL RELATED TO PT'S INCREASED PAIN IN R HIP- ORDER FOR XRAY AND STATES HE WILL INCREASE DOSE OF OXYCODONE. AWARE PT HAD A DOSE 4 HOURS APART, AND APPROVED TO START NEW TIME AT 1600.
--- NOTE | 2021-12-14 19:31 | NUR ---
SUMMARY- PT MORE SLEEPY AND WITHDRAWN TODAY. HAVING MORE PAIN IN R HIP. NO FRACTURE FOUND ON X-RAY. PT REFUSED TO BE MOVED MOST OF THE DAY. PHILLIP INTAKE VERY LIMITED, BITES OF PUREE, SIPS OF LIQUID. ORAL LESIONS FORMING, TONGUE IS DRY AND DEEP GROOVES, PAINFUL. FREQ ORAL CARE AND MOUTH MOISTERIZER AND CHAPSTICK. PT HAS BECOME ANURIC, BLADDER SCANNED AT [address] 750[address]. SON AND DAUGHTER AT BEDSIDE MOST OF THE SHIFT, INVOLVED IN CARE. SON AGREEABLE TO TAKE MOM HOME AND CARE FOR HER, BUT UNSURE OF HELP REQUIRED AND IF NEEDS SUPERCEDE CARE FROM HOME. DOESN'T QUALIFY FOR HOSPICE WITH NO TERMINAL DX.
--- NOTE | 2021-12-15 03:48 | NUR ---
PHYSICIAN COMMUNICATION CONTACTED DR ECKERT TO NOTIFY HIM THAT THE PATIENT HAS REQUIRED SEVERAL STRAIGHT CATHS DUE TO NOT VOIDING AND CURRENTLY HAS 674 ML IN HER BLADDER ACCORDING TO THE BLADDER SCAN. DR ECKERT ORDERED FOR THE PATIENT TO HAVE AN INDWELLING CATHETER.
[2021-12-15 04:22] LABS: Source, Urine Foley catheter
[2021-12-15 04:36] LABS: Appearance, Urine Hazy (Clear); Bacteria Few /hpf; Bilirubin, Urine Neg (Neg); Blood, Urine 3+ (Neg); Color, Urine Yellow (P-Yellow); Glucose Qualitative, Urine Neg (Neg); Ketones, Urine Neg (Neg); Leukocyte Esterase, Urine 1+ (Neg); Nitrite, Urine Neg (Neg); Protein, Urine 3+ (Neg); Squamous Epithelial Cells Few /hpf (Few); Urobilinogen, Urine NORM (Normal); Yeast/Fungi Urine Many /hpf
[2021-12-15 04:37] LABS: Amorphous Light (0-Heavy)
[2021-12-15 05:11] LABS: Bun/Creatinine Ratio 20.6 (12.0-20.0); Calcium, Blood 8.1 mg/dL (8.5-10.1); Creatinine, Blood 1.31 mg/dL (0.40-1.00); Potassium, Blood 3.4 mmol/L (3.5-5.5)
--- NOTE | 2021-12-15 06:22 | NUR ---
SHIFT SUMMARY PATIENT ALERT AND ORIENTED X3. MEDICATED PER EMAR FOR PAIN. WAN CATHETER INSERTED FOR RETENTION AFTER PATIENT REQUIRED MULTIPLE STRAIGHT CATHS. BED IN LOWEST POSITION WITH WHEELS LOCKED AND ALARM ON. CALL LIGHT WITHIN REACH. REPORT GIVEN TO RUBA VICENTE.
--- NOTE | 2021-12-15 17:25 | NUR ---
SHIFT SUMMARY PATIENT ALERT AND ORIENTED X3 SELF FAMILY AND EVENT. THE PATIENT HAS BEEN PRETTY SLEEPY THIS SHIFT. PATIENT IS AROUSABLE. POOR PO INTAKE DUE TO THE PATIENT BEING SO SLEEPY. PATIENT REPOSITIONED Q2 HOURS. FAMILY AT BEDSIDE MOST OF SHIFT. ORAL CARE AND MOISTURIZER APPLIED NEEDED. WAN DRAINING YELLOW URINE TO GRAVITY. 5% DEXTROSE INFUSING AT 75MLS PER HR. IV IN LEFT AC PATENT. SMALL OPEN AREA TO SACRUM. MEPILIX CHANGED TO COCCYX. BED IN LOWEST POSITION. CALL LIGHT WITHIN REACH.
--- NOTE | 2021-12-16 07:09 | NUR ---
SHIFT SUMMARY PT IS AN 81 Y/O FEMALE, ADMITTED FOR A GI BLEED. SHE IS A&O X SELF AND FAMILY, BEDREST, TURN Q2H. LETHARGIC AT TIMES, THOUGH AWAKENS TO VOICE. VITAL SIGNS STABLE. PT DID REPORT BACK PAIN, AND WAS MEDICATED WITH SCHEDULED METHADONE. NO S/S OF ACUTE DISTRESS. RECEIVING D5 @ 75 ML/HR. VITAL SIGNS STABLE. NO ACUTE CHANGES IN PT CONDITION NOTED DURING THE NIGHT. REPORT GIVEN TO ONCOMING RN.
--- NOTE | 2021-12-17 04:46 | NUR ---
SHIFT SUMMARY PT IS AN 81 Y/O FEMALE, ADMITTED FOR GI BLEED. SHE IS A&O X SELF, BEDREST, Q2H TURN. PT REPORTS EXTREME PAIN WITH ANY MOVEMENT OR TURNING. MEDICATED FOR PAIN WITH SCHEDULED METHADONE. VITAL SIGNS STABLE. POOR APETITE. NO C/O NAUSEA OR SOB. NO ACUTE CHANGES IN PT CONDITION NOTED. WILL CONTINUE TO MONITOR AND TREAT PER EMAR UNTIL HAND OFF TO DAY SHIFT RN.
[2021-12-17 05:39] LABS: Bun/Creatinine Ratio 18.5 (12.0-20.0); Calcium, Blood 8.1 mg/dL (8.5-10.1); Creatinine, Blood 1.51 mg/dL (0.40-1.00); Potassium, Blood 3.6 mmol/L (3.5-5.5)
--- NOTE | 2021-12-17 17:22 | NUR ---
SHIFT SUMMARY: NO ACUTE EVENTS. INITIALLY REFUSED BED BATH, BUT AUDIO VIDEO REPAIRER REQUESTED RN ASSISTANCE TO DO DMITRI AND CATH CARE, SO PT CONVINCED TO ALLOW BATH. DMITRI AREA AND GROIN IS EXCORIATED, APPEARED YEASTY. C/O CHRONIC R HIP PAIN; MEDICATED WITH SCHEDULED METHADONE ONLY. PT DID EXERCISES IN BED WITH SON'S ASSISTANCE. APPETITE REMAINS POOR, EATING VERY LITTLE. WHILE SON WAS OUT OF THE ROOM, THIS AUTHOR ASKED PATIENT WHAT HER WISHES WERE: DID SHE WANT TO GO HOME? HOSPICE? SNF FOR REHAB? SHE STATED "I DON'T KNOW WHAT I WANT." SHE NEEDS MAX ENCOURAGEMENT TO DO ANYTHING AND EVERYTHING. SHE IS WITHDRAWN, JUST WANTS TO SLEEP.
--- NOTE | 2021-12-18 05:08 | NUR ---
SHIFT SUMMARY PT IS AN 81 Y/O FEMALE, ADMITTED FOR GI BLEED AND POST INTUBATION. SHE IS A&O X SELF, BEDREST AND VERY PAINFUL WITH ANY MOVEMENT. MEDICATED WITH SCHEDULED METHADONE. NO C/O NAUSEA OR SOB. VITAL SIGNS STABLE. NO ACUTE CHANGES IN PT CONDITION NOTED. WILL CONTINUE TO MONITOR AND TREAT PER EMAR UNTIL HAND OFF TO DAY SHIFT RN.
--- NOTE | 2021-12-18 13:50 | NUR ---
Oral care provided prior to nystatin swish and swallow. White patches still noted in the pt mouth, she states the medicine castillo a little this time. Son at the bedside pushing the pt to eat more while staff attempted to feed her, prior to medication administration. Pt does not seem to want to participate, son is agressivly encouraging the pt to participate, despite her denial. Palliative care is aware and has met with the pt and her son. Son did call staff and request pain medication for the pt after physical therapy, but was worried she would not be able to participate with occupational therapy after the pain medicine.
--- NOTE | 2021-12-18 16:59 | NUR ---
Pt remains unable to tolerate hip pain with any activity. I attempted to see pt right after her therapy today, and she was unable to participate in any meaningful conversation due to the [address] Greenfield aware, and working on a solution. Pt's son is interesed in pursuing of "Palliative or Hospice care. I gave him some material to read, will reach out again tomorrow.
--- NOTE | 2021-12-18 18:03 | NUR ---
SOLUMEDROL DOSE NOT GIVEN- PT DAUGHTER AT THE BEDSIDE AND REQUESTED THAT THIS MED NOT BE GIVEN TO THE PT AT THIS TIME SHE ASKED THAT THE DOSE BE CHANGED TO TOMORROW MORNING RATHER THAN TONIGHT FOR THE PURPOSE OF NOT KEEPING THE PT AWAKE THROUGH THE NIGHT. CALLED DR RICE AND SHE AGREED THAT THE ORDER COULD BE CHANGED TO TOMORROW MORNING.
--- NOTE | 2021-12-18 19:41 | NUR ---
SHIFT SUMMARY- PT ALERT AND ORIENTED, SHE IS DECLINING TO MOVE FOR STAFF AT THIS TIME D/T PAIN. HOWEVER DR ORDERED A DOSE OF STEROIDS FOR INFLAMATORY PAIN AND THE FAMILY DECLINED, BECAUSE THE PT WAS NOT CURRENTLY C/O PAIN. THEN THEY REQUESTED TO DO IT IN THE MORNING, DR AGREED AND THE ORDER WAS PLACED. PT HAS SOME WHITE PATCHES IN HER MOUTH AND NYSTATIN SWISH AND SWALLOW WAS ORDERED AND ADMINISTERED AFTER ORAL CARE EACH TIME. PT SEEMS TO FOLLOW INSTRUCTIONS WELL BUT IS FORGETFUL. BEDSIDE REPORT COMPLETED WITH NIGHT RN. PT IN BED, CALL LIGHT IN REACH NO S&S OF DISTRESS NOTED AT THIS TIME.
[2021-12-19 04:46] LABS: Hematocrit 28.4 % (33.0-51.0); Hemoglobin 8.8 g/dL (11.5-16.0); Mean Corpuscular HGB 26.5 pg (26.0-34.0); Mean Corpuscular Volume 86 fL (80-100); Mean Platelet Volume 9.4 fL (9.1-12.4); Platelet Count 662 K/mm3 (150-400); RDW Coefficient Variation 15.9 % (11.7-14.2); RDW Standard Deviation 49.5 fL (35.1-46.3); Red Blood Cell Count 3.32 M/mm3 (3.80-5.20); White Blood Cell Count 10.59 K/mm3 (4.00-11.30)
[2021-12-19 05:17] LABS: Albumin, Blood 1.5 g/dL (3.4-5.0); Albumin/Globulin Ratio 0.3 (0.8-1.8); Bilirubin, Total 0.5 mg/dL (0.1-1.0); Bun/Creatinine Ratio 22.8 (12.0-20.0); Calcium, Blood 7.9 mg/dL (8.5-10.1); Creatinine, Blood 1.23 mg/dL (0.40-1.00); Globulin, Blood 4.6 g/dL (2.2-4.0); Magnesium, Blood 1.6 mg/dL (1.6-2.4); Percent Saturation 12.4 % (15.0-50.0); Potassium, Blood 3.9 mmol/L (3.5-5.5); Total Protein, Blood 6.1 g/dL (6.4-8.2)
--- NOTE | 2021-12-19 06:28 | NUR ---
81 year old Female admitted 12/05/21 with positive blood cultures x 2 with candidia in urine & sputum continues very painful rt hip with reports of rt hip arthritis & bone on bone continues to co acute pain that limits any activity. Has albert cath for urinary retention. Recent GI bleed, anorexia, anemia, weakness & unable to participate in therapies. Has supportive Son who had discussion with Pallative care & discussion with siblings of change of code status. PT to have 1 time steroid dose IV this AM, Medicated with 2.5 mg methadone with mild helpful effect.
--- NOTE | 2021-12-19 07:21 | NUR ---
ASSUMED CARE OF PT- REPORT COMPLETED WITH NIGHT RN. PER REPORT PT HAD NO CHANGE T/O THE NIGHT. PT WOKE TO STAFF VOICES UPON ENTERING THE ROOM. PT STATES PAIN 5/10 IN THE RIGHT HIP. MEPILEX IN PLACE ON THE RIGHT HEEL PT C/O ITCHING ON THE LEFT FOOT ARCH, SKIN IS DRY WILL APPLY LOTION. PT RESPONDING APPROPRIATELY TO STAFF.
--- NOTE | 2021-12-19 09:46 | NUR ---
SPOKE TO DR RICE- PT PULLED OUT HER IV, UNABLE TO GIVE IV MEDS THIS MORNING. THIS RN ATTEMPTED TO START A NEW IV TWICE AND WELDING SPECIALIST ATTEMPTED TWICE. DR LOPEZ, ORDER RECIEVED FOR NO IV ACCESS, ORDER TO HOLD ALL IV MEDS, WILL CHANGE THE MEDS TO PO.
--- NOTE | 2021-12-19 11:00 | NUR ---
Pt's son reviewed POLST with pt and this RN. They elected to change Code Status to DNR. We had a full discussion yesterday on the differences in code status, and what they mean. The patient has made it clear that the R hip pain is keeping her from any quality of life, including limiting her sleep and appetite. Her case has been reviewed by [facility]) and they should be reaching out to pt's son Hernandez conrad. Dr. Greenfield states she has ordered Roxanol for pt, in the hopes she will get better relief using this pain medication for breakthrough pain. Plan is to return home with Palliative Care, transitioning to Hospice if needed. Pt is unable to perform most ADL's at this time due to pain. Pt's son is agreeable to this plan.
--- NOTE | 2021-12-19 16:30 | NUR ---
RECTAL BLEEDING- PT HAS BEEN REFUSING TO BE REPOSITIONED UNTIL TODAY ONCE SHE GOT PAIN MEDICATION SHE WAS WILLING TO LET STAFF REPOSITION HER. STAFF ROLLED THE PT TO FINALLY VISUALIZE HER BOTTOM AND CHANGE THE MEPILEX THERE, PT HAD ABOUT A CUP OF AMY RED BLOOD PRODUCED FROM THE [facility] AT THE TIME OF THE CHANGE. CALLED DR RICE AND SHE ORDERED A CT ABDOMEN WITH IV CONTRAST, CALLED HER BACK SHE ORDERED NO IV ACCESS EARLIER THIS SHIFT AND SHE STATED TO CHANGE TO CT ABDOMEN W/O CONTRAST.
--- NOTE | 2021-12-19 18:31 | NUR ---
SHIFT SUMMARY- PT ALERT AND ORIENTED TO SELF AND FAMILY. PT HAS BEEN COOPERATIVE WITH ALL CARE TODAY AFTER 1 DOSE OF ROXANOL TO MANAGE HER PAIN. PT CHANGED TO A DNR TODAY WITH THE PLAN TO DISCHARGE HOME ON HOSPICE. PT WAS CHANGED THIS EVENING AND FOUND TO HAVE A GOOD AMOUNT OF AMY RED LIQUID COMING FROM HER RECTUM, DR NOTIFIED AND CT ABDOMEN WAS PERFORMED. PT CHANGED AGAIN AFTER THE CT AND REPOSITIONED FOR ONE OF HER Q2 TURNS. PT SON HAS NOT YET RETURNED TO THE BEDSIDE SINCE THE CHANGE WILL CALL TO UPDATE HIM ONCE MORE INFO IS AVAILABLE.
--- NOTE | 2021-12-19 19:55 | NUR ---
CALLED DR RICE PT HAD A SECOND BOUT OF BLOODY STOOL AMY RED BLOOD NO REAL BROWN TO IT. LEFT A MESSAGE THAT THERE WAS A RECURRENCE OF THE ISSUE.
--- NOTE | 2021-12-19 19:56 | NUR ---
CALLED THE PT SON SARAH- CALLED THE PT SON TO LET HIM KNOW THE PT IS HAVING BLOODY STOOLS, HE ASKED IF THE PT WAS GOING TO BE ALRIGHT THROUGH THE NIGHT OR IF HE COULD COME IN TO SEE HER NOW. SPOKE TO SR. OPERATIONS MANAGER FOR [employer] THEY ARE AWARE THE SON IS COMING IN AT THIS TIME. PT WAS SWITCHED TO A DNR TODAY BUT IF FURTHER BLOODY STOOLS HAPPEN THE SON MAY NEED TO DECIDE ON TREATMENT OPTIONS FOR THE PT. NIGHT RN AWARE OF ALL, BEDSIDE REPORT COMPLETED.
--- NOTE | 2021-12-20 04:47 | NUR ---
SHIFT SUMMARY PT NOT COOPERATIVE IN ALLOWING STAFF TO TURN HER. WE HAVE TRIED TO MOVE PILLOWS TO DIFFERENT AREAS OF THE BODY. SON IS IN THE ROOM AND HAS BEEN TRYING TO HELP WITH THIS WELL. PT GIVEN ROXANOL SEVERAL TIMES THROUGHOUT THE NIGHT FOR HIP PAIN. PT IS DROWSY AND IS A&O X 2-3. PT HAD BLOODY DIARRHEA AT THE BEGINNING OF THE SHIFT BUT HAS NOT HAD AN EPISODE TO MY KNOWLEDGE SINCE THEN. PT IS NOW A DNR. I BELIEVE THE PLAN IS TO DISCHARGE HER HOME TO BE ON HOSPICE. CALL LIGHT IS WITHIN REACH OF PT AND FAMILY. WILL CONTINUE TO MONITOR.
--- NOTE | 2021-12-20 08:33 | NUR ---
CALLED DR RICE- PT SON AT THE BEDSIDE AND SEEMS VERY OPEN TO THE IDEA OF COMFORT CARE AND LETTING THE PT MOVE THROUGH THE STAGES OF AND DYING. PT WAS PAINFUL THROUGH THE NIGHT AND THE SON WAS DIRECTING THE ADMINISTRATION OF PAIN MEDICATION, REQUESTING IT THE PT NEEDED. PT HAS HAD NO FURTHER RECTAL BLEEDING PER REPORT FROM NIGHT RN. AWARE. RESULTS ARE IN FOR THE ABDOMEN CT AND IS AWARE, SHE PLANS TO COME SEE THE PT AND SPEAK TO THE SON ABOUT COMFORT CARE.
[2021-12-20 09:11] LABS: Hematocrit 28.2 % (33.0-51.0); Hemoglobin 8.5 g/dL (11.5-16.0); Mean Corpuscular HGB 26.1 pg (26.0-34.0); Mean Corpuscular HGB Conc 30.1 g/dL (31.5-36.5); Mean Corpuscular Volume 87 fL (80-100); Mean Platelet Volume 9.1 fL (9.1-12.4); Platelet Count 792 K/mm3 (150-400); RDW Coefficient Variation 15.9 % (11.7-14.2); RDW Standard Deviation 50.4 fL (35.1-46.3); Red Blood Cell Count 3.26 M/mm3 (3.80-5.20); White Blood Cell Count 9.77 K/mm3 (4.00-11.30)
[2021-12-20 09:29] LABS: Albumin, Blood 1.7 g/dL (3.4-5.0); Albumin/Globulin Ratio 0.4 (0.8-1.8); Bilirubin, Total 0.5 mg/dL (0.1-1.0); Bun/Creatinine Ratio 25.4 (12.0-20.0); Creatinine, Blood 1.22 mg/dL (0.40-1.00); Globulin, Blood 4.7 g/dL (2.2-4.0); Potassium, Blood 3.5 mmol/L (3.5-5.5); Total Protein, Blood 6.4 g/dL (6.4-8.2)
--- NOTE | 2021-12-20 09:57 | NUR ---
CALLED DR RICE- PT HAD ANOTHER BOUT OF LIQUID BLOOD STOOLS. INFORMED DR, SHE IS AWARE. PT SON AT THE BEDSIDE, WAITING TO SEE THE DOCTOR.
--- NOTE | 2021-12-20 10:00 | NUR ---
COMFORT CARE NOTE- PT SWITCHED TO COMFORT CARE- MEDICATED WITH ROXANOL JUST BEFOR THE NEW ORDERS. PT APPEARS COMFORTABLE AT THIS TIME, SON AT THE BEDSIDE AND CALLS APPROPRIATELY FOR HER PAIN MEDICINE. WILL CTM
--- NOTE | 2021-12-20 11:00 | NUR ---
COMFORT CARE NOTE- PT GRASPING AT OBJECTS, GASPING AND MOANING SON AT THE BEDSIDE REQUESTED PAIN MEDICATION, OFFERED TO MEDICATE HER FOR ANXIETY WELL AND THE SON AGREED. MEDICATED WITH ROXANOL 5MG, THEN WENT TO PHARMACY TO GET THE LIQUID ATIVAN ORDERED.
--- NOTE | 2021-12-20 11:08 | NUR ---
Spoke with Primary RN Soumya and Dr Greenfield. Pt has had a change in condition, after discussion with son regarding goals of care son has elected comfort care. Dr Greenfield will place comfort care orders. Pt resting in bed with her eyes closed. Pt appears comfortable with no S/S of distress at this time. Son Hernandez at bedside. Offered emotional support as son is tearful. Answered questions and validated concerns. Hernandez reports when Pt passes away, home of choice is [facility]. D/C nursing orders per V/O from Dr Greenfield. Ordered comfort care cart. Palliative Care will remain available.
--- NOTE | 2021-12-20 11:20 | NUR ---
Spiritual Care Visit. Pt. is resting and not responsive. Pts. son is present and informs this jigsawyer that a decision for Comfort Care has been given. When this jigsawyer inquired how the son was coping with that decision, the son became cathartic and displayed evidence of wanting to deflect the spiritual care away from him. Son asked if the hospital could contact the pts. director of recruitment. Palliative Care arrived for a consult. This jigsawyer contacted the Pts. director of recruitment by phone.
--- NOTE | 2021-12-20 12:00 | NUR ---
COMFORT CARE NOTE- PT WOKE FROM SLEEP IN A PANICK FRASPING AT HER ABDOMEN PUSHING AT THE ATTENDS THEN DROPPED BACK TO SLEEP AND SHE DID IT AGAIN, SON REQUESTED PAIN MEDICINE "MORE THAN THE LAST TIME." MEDICATED WITH 10MG ROXANOL. DISCUSSED WITH THE SON WHAT TO EXPECT THE PT MOVES THROUGH THE STAGES OF AND DYING. HE IS AWARE THAT THERE ARE MEDICATIONS FOR SECRETIONS AND ANXIETY AND GASPING RESPIRATIONS. THE SON WILL CALL IF ANY OF THESE SIGNS APPEAR. WILL CTM.
--- NOTE | 2021-12-20 13:30 | NUR ---
COMFORT CARE NOTE- PT MEDICATED FOR PAIN PRIOR TO ROLL AND CHANGE AND REPOSITION. PT ATTENDS CHANGED AND GOWN CHANGED. PT HAD MILD SIGNS OF DISCOMFORT WITH THE ROLL AND CHANGE. AMY RED BLOOD IN THE ATTEND, DMITRI CARE PERFORMED. PT REPOSITIONED TO LEFT SIDE LYING. FAMILY DECIDED AFTER TO LEAVE FOR A WHILE, SON REQUESTS A PHONE CALL IF THE PT STARTS TO TRANSITION.
--- NOTE | 2021-12-20 14:00 | NUR ---
FAMILY AT THE BEDSIDE- PT APPEARS COMFORTABLE AND RELAXED AT THIS TIME. WILL CTM. PLAN IS TO PREMEDICATE AND THEN ROLL AND CHANGE THE PT IN THE NEXT HOUR OR SO. FAMILY IS AWARE.
--- NOTE | 2021-12-20 15:05 | NUR ---
Spiritual Care (follow up) Pt. is soundly sleeping. Pt. displays no evidence of agitation. Pts. son and friend are present. Updated son, that the Pts. well head pumper has been notified. Pts. son verbally expressed gratitude for the support and effort of the Spiritual Care Dept.
--- NOTE | 2021-12-20 17:51 | NUR ---
COMFORT CARE NOTE- PT WAS REPOSITIONED TO RIGHT SIDE LYING AND SEEMED TO TOLLERATE WELL, MEDS NOT GIVEN IN ADVANCE THIS TIME, ATTENDS CHECKED AND NO CHANGE WAS NEEDED AT THIS TIME WILL CTM.
--- NOTE | 2021-12-20 19:00 | NUR ---
SHIFT SUMMARY- PT UNRESPONSIVE AT THIS TIME AND HAS BEEN FOR THE SECOND HALF OF THE SHIFT, SHE BECOMES TENSE WITH TURNS AND MOANS WITH DISCOMFORT WHEN NOT MEDICATED PRIOR. PT HAS BEEN HAVING BLOODY STOOLS T/O THE SHIFT. FAMILY NOT CURRENTLY AT THE BEDSIDE, SON SARAH WOULD LIKE TO BE CALLED IF THE PT HAS A STATUS CHANGE. NIGHT RN AWARE DISCUSSED IN BEDSIDE REPORT. NO S&S OF DISTRESS AT THE TIME OF SHIFT CHANGE. RECOMENDED PREMEDICATING WITH ROXANOL PRIOR TO REPOSITIONING, AT LOW DOSE TO NIGHT RN, TO MAINTAIN PT COMFORT.
--- NOTE | 2021-12-21 02:00 | NUR ---
PT APPEARS PAINFUL. MOVED PILLOWS AROUND AND UNDER HIP. WILL MEDICATE PER EMAR IF NECESSARY.
--- NOTE | 2021-12-21 03:55 | NUR ---
SHIFT SUMMARY PT MADE COMFORT CARE YESTERDAY. PT UNRESPONSIVE TO STIMULI MOST OF THIS SHIFT. PT AWOKE ABOUT 0250 AND BEGAN MOANING. PT MEDICATED PER EMAR. PT DIGGING AND SCRATCHING AT HER DMITRI AREA. AREA IS RED AND SORE. LOTION PLACED TO THE AREA AND COVERED WITH ATTENDS. I ASKED IF SHE WANTED ME TO CALL HER SON AND SHE STATED "NO". CALL LIGHT WITHIN HER REACH. I WILL CONTINUE TO MONITOR HER AND WILL CALL HER SON IF NECESSARY.
--- NOTE | 2021-12-21 08:47 | NUR ---
Comfort Care Visit Pt resting in bed with her eyes closed. Pt appears comfortable with no S/S of distress at this time. Family at bedside. Offered supportive listening. Family reports no concerns at this time. Palliative Care will remain available.
--- NOTE | 2021-12-21 11:06 | NUR ---
Spoke with Primary RN Sharmila and discussed case. Reviewed comfort medications and Pt's symptoms. Pt requiring increased frequency of comfort medications. Spoke with Dr Greenfield and discussed case. Placed order for Haldol 1-2mg PO Q 6 hours PRN per V/O from Dr Greenfield.
--- NOTE | 2021-12-21 17:06 | NUR ---
END OF SHIFT SUMMARY Pt doing well this shift, this am pt uncomfortable, facial griminacing, clenched fists, moaning/groaning. MS given Q1H for pain, Haldol & ativan given for agitation. Pt resting comfortably this afternoon. Pts family at bedisde all day. Pt had loose stools this shift, albert patent, draining to gravity. Repositioned Q2H.
--- NOTE | 2021-12-22 04:21 | NUR ---
PT SKIN FEELS A BIT WARM. TOOK BLANKET OFF OF PT AND PLACED A SHEET OVER HER INSTEAD. WILL REASSESS.
--- NOTE | 2021-12-22 04:28 | NUR ---
SHIFT SUMMARY PT SLEEPING THROUGHOUT SHIFT. PT GRIMACES AND MOANS IN PAIN, MEDICATED WITH ROXANOL NEEDED PER EMAR. PT DOES NOT TOLERATE BEING TURNED. SCOPOLAMINE PATCH PLACED BEHIND PT'S L EAR LAST NIGHT AND ATROPINE DROPS GIVEN WHEN APPROPRIATE. PT BEING CHECKED ON FREQUENTLY AND WILL CONTINUE TO MONITOR.
--- NOTE | 2021-12-22 09:11 | NUR ---
Comfort Care Visit Pt resting in bed with her eyes closed. Pt is minimally responsive with an occasional movement of her head. Pt's family at bedside. Offered gentle voice and answered questions. Mild to moderate secretions noted. Pt appears comfortable with no S/S of distress at this time. Palliative Care will remain available.
--- NOTE | 2021-12-22 17:23 | NUR ---
Pt on comfort measures, family at bedisde all day. Pain/SOB controlled with MS/Ativan. Moderate secretions, oral care performed. 1545, Pts son notified RN that pt unresponsive. Assessed pt with second RN, asculatated/palpated no heart beat detected. Notified MD, time of 1550. Post-mortum care provided, home called, pt left [facility] at 1645.
== END 2021-12-22 15:49 | DRG 871 ==
LOC: ER 01:20 → ICUW 04:48 → MEDS 12-09 19:04
PROVIDERS: Family Medicine; Internal Medicine; Internal Medicine Critical Care Medicine; Student in an Organized Health Care Education/Training Program; ADMIT Internal Medicine
PROC: 0BH17EZ Insertion of Endotracheal Airway into Trachea, Via Natural or Artificial Opening (ICD-10-PCS; principal; 2021-12-05)
PROC: 5A1945Z Respiratory Ventilation, 24-96 Consecutive Hours (ICD-10-PCS; 2021-12-05)
PROC: 30233N1 Transfusion of Nonautologous Red Blood Cells into Peripheral Vein, Percutaneous Approach (ICD-10-PCS; 2021-12-05)
PROC: 04HY32Z Insertion of Monitoring Device into Lower Artery, Percutaneous Approach (ICD-10-PCS; 2021-12-05)
PROC: 4A133B1 Monitoring of Arterial Pressure, Peripheral, Percutaneous Approach (ICD-10-PCS; 2021-12-05)
PROC: 4A133J1 Monitoring of Arterial Pulse, Peripheral, Percutaneous Approach (ICD-10-PCS; 2021-12-05)
PROC: 06HY33Z Insertion of Infusion Device into Lower Vein, Percutaneous Approach (ICD-10-PCS; 2021-12-05)
PROC: 3E033XZ Introduction of Vasopressor into Peripheral Vein, Percutaneous Approach (ICD-10-PCS; 2021-12-05)
PROC: 3E03329 Introduction of Other Anti-infective into Peripheral Vein, Percutaneous Approach (ICD-10-PCS; 2021-12-05)
DX: A41.01 Sepsis due to Methicillin susceptible Staphylococcus aureus (principal); R65.21 Severe sepsis with septic shock; J96.02 Acute respiratory failure with hypercapnia; N39.0 Urinary tract infection, site not specified; E87.2 Acidosis; Z66 Do not resuscitate; Z51.5 Encounter for palliative care; G93.40 Encephalopathy, unspecified; K92.2 Gastrointestinal hemorrhage, unspecified; N17.9 Acute kidney failure, unspecified; E87.0 Hyperosmolality and hypernatremia; R64 Cachexia; Z20.822 Contact with and (suspected) exposure to COVID-19; Z78.1 Physical restraint status; B96.20 Unspecified Escherichia coli [E. coli] as the cause of diseases classified elsewhere; E87.6 Hypokalemia; R19.7 Diarrhea, unspecified; M16.11 Unilateral primary osteoarthritis, right hip; D75.839 Thrombocytosis, unspecified; Z68.21 Body mass index [BMI] 21.0-21.9, adult; R62.7 Adult failure to thrive; D49.0 Neoplasm of unspecified behavior of digestive system; E87.5 Hyperkalemia; I48.91 Unspecified atrial fibrillation; D64.9 Anemia, unspecified; G89.29 Other chronic pain; R57.8 Other shock; F11.90 Opioid use, unspecified, uncomplicated; Z79.899 Other long term (current) drug therapy
CPT/HCPCS: 0241U; 31500; 36415; 36430; 36556; 36600; 36620; 51702; 70450; 71045; 71250; 72192; 73502; 74176; 80048; 80053; 80069; 80202; 81001; 82272; 82330; 82375; 82533; 82550; 82728; 82803; 82947; 83540; 83550; 83605; 83735; 84100; 84443; 85014; 85018; 85025; 85027; 85610; 85651; 85730; 86140; 86430; 86850; 86900; 86901; 86920; 86923; 87040; 87070; 87077; 87086; 87147; 87186; 87205; 87507; 93005; 93010; 93306; 94002; 94003; 94644; 94664; 96365; 96366; 96368; 96375; 96376; 97110; 97162; 97166; 97530; 97535; 99291-25; 99292; A9270; C1751; C9113; J0171; J0610; J0696; J1815; J1940; J2310; J2370; J2405; J2704; J3010; J3370; J3475; J3480; J7030; J7040; J7060; J7070; J7120; J7799; P9016